=== PATIENT | female | born 1960 | race Caucasian/White ===

== ENCOUNTER 2017-05-19 13:12 | Emergency (ER) | payer OTHER ==
[2017-05-19 13:14] VITALS: BP 130/81; PULSE 91; RESP 14; TEMP 98.5; O2SAT 100
[2017-05-19 13:56] LABS: AUTOMATED NEUTROPHIL # 3.4 TH/MM3 (1.8-7.7); BASOPHIL % 0.8 % (0.0-2.0); EOSINOPHIL # 0.1 TH/MM3 (0-0.4); EOSINOPHIL % 1.7 % (0.0-4.0); HEMATOCRIT 41.8 % (35.0-46.0); HEMOGLOBIN 14.6 GM/DL (11.6-15.3); LYMPHOCYTE # 2.5 TH/MM3 (1.0-4.8); MEAN CELL VOLUME 88.2 FL (80.0-100.0); MEAN CORPUSCULAR HEMOGLOBIN 30.9 PG (27.0-34.0); MEAN PLATELET VOLUME 8.4 FL (7.0-11.0); MONO % 5.7 % (0.0-8.0); MONOCYTE # 0.4 TH/MM3 (0-0.9); NEUT % 52.8 % (16.0-70.0); PLATELET COUNT 221 TH/MM3 (150-450); RED BLOOD COUNT 4.74 MIL/MM3 (4.00-5.30); RED CELL DISTRIBUTION WIDTH 12.3 % (11.6-17.2); WHITE BLOOD COUNT 6.4 TH/MM3 (4.0-11.0)
[2017-05-19 14:11] LABS: BILIRUBIN, URINE NEG (NEG); BLOOD, URINE TRACE (NEG); GLUCOSE,URINE NEG (NEG); KETONE, URINE 10 mg/dL (NEG); MUCUS URINE FEW /lpf (OCC); NITRITE,URINE NEG (NEG); SQUAMOUS EPITHELIAL CELL URINE <1 /hpf (0-5); URINE COLOR YELLOW (YELLW/STRAW); URINE LEUKOCYTE ESTERASE NEG (NEG)
[2017-05-19 14:13] LABS: ALBUMIN 4.5 GM/DL (3.4-5.0); ALT (GPT) 17 U/L (10-53); AST (GOT) 14 U/L (15-37); BICARBONATE 27.1 MEQ/L (21.0-32.0); BLOOD UREA NITROGEN 7 MG/DL (7-18); CALCIUM 9.5 MG/DL (8.5-10.1); CHLORIDE 103 MEQ/L (98-107); CREATININE 0.73 MG/DL (0.50-1.00); GLOMERULAR FILTRATION RATE 82 ML/MIN (>89); GLUCOSE,RANDOM 91 MG/DL (74-106); LIPASE 236 U/L (73-393); SODIUM (NA) 142 MEQ/L (136-145)
[2017-05-19 14:15] LABS: ALKALINE PHOSPHATASE 80 U/L (45-117); TOTAL PROTEIN 8.4 GM/DL (6.4-8.2)
--- NOTE | 2017-05-19 15:29 | PD ---
HPI Chief Complaint: GI Complaint Time Seen by Provider: 14:59 Travel History International Travel<30 days: No Contact w/Intl Traveler<30days: No Traveled to known affect area: No History of Present Illness HPI 57-year-old female came to the emergency room with history of nausea, vomiting and diarrhea for past 1 week. Patient says that she had gone to the urgent care about 5 days ago where she was diagnosed with possible urinary infection and was given a Z-Lb which patient has finished. However she says her symptoms have continued and she has never felt this bad for a very long time. She went to the urgent care today since these complains persistent and they recommended that she should come to the emergency room and hence she is here. Vital signs are stable. There was blood test done prior to the patient coming into the ER and her bilirubin is slightly elevated. Patient denies drinking any alcohol or IV drug abuse. She does not take any routine medications. PFSH Past Medical History Narrative Medical List of her past medical, surgical, social and family history is reviewed from the nursing note. Autoimmune Disease: Yes (anticardiolipid anibody syndrome ??) Blood Disorders: No Anxiety: Yes Depression: Yes Cancer: No Cardiovascular Problems: No Endocrine: No Genitourinary: No Hiatal Hernia: No Musculoskeletal: No Neurologic: No Reproductive: No Respiratory: No Immunizations Current: No Past Surgical History Cholecystectomy: Yes Eye Surgery: Yes (detatched retina surgery) Gynecologic Surgery: Yes (hysterectomy 2004) Hysterectomy: Yes Pacemaker: No Other Surgery: Yes Social History Alcohol Use: No Tobacco Use: Yes (3 cigarettes per day) Substance Use: No Allergies-Medications (Allergen,Severity, Reaction): Coded Allergies: Sulfa (Sulfonamide Antibiotics) (Unverified Allergy, Intermediate, SHORTNESS OF BREATH, 05/19/17) lidocaine (Unverified Allergy, Intermediate, FAINTED ALLERGIC TO ALL PRIETO, 05/19/17) prednisone (Unverified Allergy, Intermediate, chest pain, 05/19/17) Comments List of her allergies reviewed from the nursing note. Reported Meds & Prescriptions Reported Meds & Active Scripts Active Reglan (Metoclopramide HCl) 5 Mg Tab 5 Mg PO TIDAC PRN Narrative Medication List of her home medications reviewed from the nursing note. Review of Systems Except as stated in HPI: all other systems reviewed are Neg Gastrointestinal: Positive: Nausea, Vomiting, Diarrhea Physical Exam Narrative GENERAL: Awake, alert, moderate distress SKIN: Focused skin assessment warm/dry. HEAD: Atraumatic. Normocephalic. EYES: Pupils equal and round. Mild icterus. No injection or drainage. ENT: No nasal bleeding or discharge. Mucous membranes pink and moist. NECK: Trachea midline. No JVD. CARDIOVASCULAR: Regular rate and rhythm. No murmur appreciated. RESPIRATORY: No accessory muscle use. Clear to auscultation. Breath sounds equal bilaterally. GASTROINTESTINAL: Abdomen soft, non-tender, nondistended. Hepatic and splenic margins not palpable. MUSCULOSKELETAL: No obvious deformities. No clubbing. No cyanosis. No edema. NEUROLOGICAL: Awake and alert. No obvious cranial nerve deficits. Motor grossly within normal limits. Normal speech. PSYCHIATRIC: Appropriate mood and affect; insight and judgment normal. Data Data Last Documented VS Vital Signs Date Time Temp Pulse Resp B/P (MAP) Pulse Ox O2 Delivery O2 Flow Rate FiO2 05/19/17 17:30 05/19/17 16:07 98 Room Air 05/19/17 13:14 98.5 91 14 Orders Orders Complete Blood Count With Diff (05/19/17 13:31) Comprehensive Metabolic Panel (05/19/17 13:31) Urinalysis - C+S If Indicated (05/19/17 13:31) Lipase (05/19/17 13:31) Sodium Chlor 0.9% 1000 Ml Inj (Ns 1000 M (05/19/17 15:45) Ct Abd/Pel W Iv Contrast(Rout) (05/19/17 15:33) Iv Access Insert/Monitor (05/19/17 15:33) Ecg Monitoring (05/19/17 15:33) Oximetry (05/19/17 15:33) Sodium Chloride 0.9% Flush (Ns Flush) (05/19/17 15:45) Potassium Chloride (Kcl) (05/19/17 15:45) Hepatitis Profile (05/19/17 15:34) Iohexol 350 Inj (Omnipaque 350 Inj) (05/19/17 16:17) Ed Discharge Order (05/19/17 17:20) Labs Laboratory Tests Test 05/19/17 13:45 05/19/17 13:47 05/19/17 16:28 White Blood Count 6.4 TH/MM3 Red Blood Count 4.74 MIL/MM3 Hemoglobin 14.6 GM/DL Hematocrit 41.8 % Mean Corpuscular Volume 88.2 FL Mean Corpuscular Hemoglobin 30.9 PG Mean Corpuscular Hemoglobin Concent 35.0 % Red Cell Distribution Width 12.3 % Platelet Count 221 TH/MM3 Mean Platelet Volume 8.4 FL Neutrophils (%) (Auto) 52.8 % Lymphocytes (%) (Auto) 39.0 % Monocytes (%) (Auto) 5.7 % Eosinophils (%) (Auto) 1.7 % Basophils (%) (Auto) 0.8 % Neutrophils # (Auto) 3.4 TH/MM3 Lymphocytes # (Auto) 2.5 TH/MM3 Monocytes # (Auto) 0.4 TH/MM3 Eosinophils # (Auto) 0.1 TH/MM3 Basophils # (Auto) 0.0 TH/MM3 CBC Comment DIFF FINAL Differential Comment Blood Urea Nitrogen 7 MG/DL Creatinine 0.73 MG/DL Random Glucose 91 MG/DL Total Protein 8.4 GM/DL Albumin 4.5 GM/DL Calcium Level 9.5 MG/DL Alkaline Phosphatase 80 U/L Aspartate Amino Transf (AST/SGOT) 14 U/L Alanine Aminotransferase (ALT/SGPT) 17 U/L Total Bilirubin 2.0 MG/DL Sodium Level 142 MEQ/L Potassium Level 3.3 MEQ/L Chloride Level 103 MEQ/L Carbon Dioxide Level 27.1 MEQ/L Anion Gap 12 MEQ/L Estimat Glomerular Filtration Rate 82 ML/MIN Lipase 236 U/L Urine Color YELLOW Urine Turbidity CLEAR Urine pH 6.0 Urine Specific [place] 1.010 Urine Protein NEG mg/dL Urine Glucose (UA) NEG mg/dL Urine Ketones 10 mg/dL Urine Occult Blood TRACE Urine Nitrite NEG Urine Bilirubin NEG Urine Urobilinogen LESS THAN 2.0 MG/DL Urine Leukocyte Esterase NEG Urine RBC 1 /hpf Urine WBC 1 /hpf Urine Squamous Epithelial Cells <1 /hpf Urine Mucus FEW /lpf Microscopic Urinalysis Comment CULT NOT INDICATED Hepatitis A IgM Antibody NEGATIVE Hepatitis B Surface Antigen NEGATIVE Hepatitis B Core IgM Antibody NEGATIVE Hepatitis C Antibody NEGATIVE [facility] Medical Decision Making Medical Screen Exam Complete: Yes Emergency Medical Condition: Yes Medical Record Reviewed: Yes Differential Diagnosis Hepatitis, obstructive jaundice Narrative Course 4:10 PM I have ordered a CT scan of her abdomen and pelvis which I'm waiting for. I will order for hepatitis panel as well. Patient is getting 1 L of IV fluid bolus and potassium replacement. 5:[address] scan is within normal limit. At this point I'm comfortable discharging her home. She is to follow up with her primary care. Procedures EKG Prior to Arrival: No Diagnosis Primary Impression: Gastroenteritis Referrals: Primary Care Physician Departure Forms: Tests/Procedures, Work Release Enter return to work date: May 22, 2017 Additional Instructions: Please return to the ER if condition worsens or any other new concerns. You should follow-up with your primary care and get your liver function test repeated in a week. Take the new medication as per the prescription direction for nausea and vomiting. Med/Other Pt SpecificInfo: Prescription(s) given Scripts Metoclopramide (Reglan) 5 Mg Tab 5 MG PO TIDAC Y for nausea, #10 TAB 0 Refills Prov: Chris Whaley MD 05/19/17 Disposition: 01 DISCHARGE HOME Condition: Stable Chris Whaley MD May 19, 2017 15:29
[2017-05-19] MEDS ORDERED: SODIUM CHLORIDE 0.9% FLUSH 10 ML FLUSH IV FLUSH PRN (15:45)
[2017-05-19] MEDS ORDERED: SODIUM CHLOR 0.9% 1000 ML INJ 1,000 ML IV ONE (15:45)
[2017-05-19] MEDS ORDERED: POTASSIUM CHLORIDE 20 MEQ CONTROLLED RELEASE TAB PO ONE (15:45)
[2017-05-19 16:07] VITALS: O2SAT 98
[2017-05-19] MEDS ORDERED: IOHEXOL 350 MG/ML 10 ML VIAL (for RAD DIAG) IVCONTRAST ONE (16:17)
--- NOTE | 2017-05-19 16:44 | RADRPT ---
EXAM DATE/TIME: 05/19/2017 15:56 [facility] COMPARISON: No previous studies available for comparison. INDICATIONS : Abdominal discomfort, nausea and vomiting for 1 week. IV CONTRAST: 71 cc Omnipaque 350 (iohexol) IV ORAL CONTRAST: No oral contrast ingested. RADIATION DOSE: 6.75 CTDIvol (mGy) MEDICAL HISTORY : None SURGICAL HISTORY : Hysterectomy. ENCOUNTER: Initial ACUITY: 1 week PAIN SCALE: 3/10 LOCATION: Bilateral abdomen TECHNIQUE: Volumetric scanning of the abdomen and pelvis was performed. Using automated exposure control and ad justment of the mA and/or kV according to patient size, radiation dose was kept as low as reasonably achievable to obtain optimal diagnostic quality images. DICOM format image data is available electro nically for review and comparison. FINDINGS: LOWER LUNGS: Mild right lower lung atelectasis. Left lung bases clear. LIVER: Homogeneous density without lesion. There is no dilation of the biliary tree. No gallbladder, surgi jeniffer removed.. SPLEEN: Normal size without lesion. PANCREAS: Within normal limits. KIDNEYS: Normal in size and shape. There is no mass, stone or hydronephrosis. ADRENAL GLANDS: Within normal limits. VASCULAR: There is no aortic aneurysm. BOWEL/MESENTERY: The stomach, small bowel, and colon demonstrate no acute abnormality. There is no free intraperitone al air or fluid. No inflammatory changes. A few scattered diverticula are demonstrated. ABDOMINAL WALL: Within normal limits. RETROPERITONEUM: There is no lymphadenopathy. BLADDER: No wall thickening or mass. REPRODUCTIVE: Within normal limits. INGUINAL: There is no lymphadenopathy or hernia. MUSCULOSKELETAL: Within normal limits for patient age. Mild degenerative changes. CONCLUSION: 1. No acute pathology. 2. A few scattered diverticula are noted throughout the colon. 3. Mild degenerative changes of the bony structures. 4. Status post cholecystectomy. Rikki Frost MD on May 19, 2017 at 16:39 Board Certified Radiologist. This report was verified electronically.
[2017-05-19] MEDS ORDERED: REGL5TAB PO (17:22)
[2017-05-20 10:04] LABS: HEPATITIS A AB IGM NEGATIVE (NEGATIVE); HEPATITIS B CORE AB IGM NEGATIVE (NEGATIVE); HEPATITIS B SURFACE ANTIGEN NEGATIVE (NEGATIVE); HEPATITIS C AB IgG NEGATIVE (NEGATIVE)
== END 2017-05-19 19:36 | disposition home or self-care (01) ==
LOC: NEPD 13:12
DX: K52.9 Noninfective gastroenteritis and colitis, unspecified (principal); Z72.0 Tobacco use
CPT/HCPCS: 74177; 80053; 80074; 81001; 83690; 85025; 99284; J7030; Q9967